=== PATIENT | female | born 1965 | race African-American/Black ===

== ENCOUNTER → 2023-11-18 15:54 | Outpatient (REF) | payer BC, SELFPAY | LOC: RCS 15:54 | PROVIDERS: ATTENDING PHYSICIAN Internal Medicine Cardiovascular Disease; FAMILY PHYSICIAN Family Medicine; REFERRING PHYSICIAN Internal Medicine Gastroenterology | DX: I10 Essential (primary) hypertension (principal); I51.7 Cardiomegaly; R00.2 Palpitations; R01.1 Cardiac murmur, unspecified | CPT/HCPCS: 93306 ==

== ENCOUNTER 2024-04-09 22:15 | Emergency (ER) | payer BC, SELFPAY ==
[2024-04-09 22:19] VITALS: BP 144/64
--- NOTE | 2024-04-09 23:42 | ED.GENMED ---
History of Present Illness
<WENDY Ro - Last Filed: 04/10/24 01:29>
General
Chief Complaint: Allergic Reaction
Source: patient
Exam Limitations: none
Time Seen by Provider: 04/09/24 23:28
Nursing documentation reviewed up to this point in time: agreed with
History of Present Illness
History of Present Illness:
Patient is a 59 yo F who presents w/ complaint of allergic reaction. Sxs started yesterday when pt woke up w/ swollen eyes. Soon after she woke up her face, head, and upper body got very itchy. She reports an itchy rash under both her breasts. Has
been using hydrocortisone cream w/o relief. Also reports swelling and pain of L wrist and B/L shoulders. She denies recent illness, travel, med changes, or outdoor activities. Denies trying any new foods or products recently. Started going to [employer]
in pool 2 wks ago. Stung by bee last week. Hx of ulcerative colitis.
Past History
<WENDY Ro - Last Filed: 04/10/24 01:29>
Past History
ED Past Medical History: HTN and Other (hyperthyroid)
Social History
Tobacco: Non-smoker
Alcohol: Occasional
Drug: None
Living: with family
Employment: Employed
Review of Systems
<WENDY Ro - Last Filed: 04/10/24 01:29>
Review of Systems
Constitutional: Denies fever, fatigue or chills
EENT: Denies sore throat or runny nose
Respiratory: Denies cough or trouble breathing
Cardiac: Denies chest pain or palpitations
ABD/GI: Denies abdominal pain, nausea, vomiting, diarrhea or constipated
: Denies dysuria or frequency
Musculoskeletal: Reports joint pain and joint swelling; Denies muscle pain or muscle stiffness
Skin: Reports itching and rash
Neurological: Denies dizzy, headache or numbness
Phy Exam
<WENDY Ro - Last Filed: 04/10/24 01:29>
General Physical Exam
General Presentation: well appearing
General age: appears younger than age
General Skin: warm and dry
General Habitus: normal
General Mental: alert
ENT Exam
ENT Exam: pharynx normal, neck supple, normocephalic and other (Diffuse flat, brown dots on tongue. Pt states they have always been there. )
Additional ENT: Bottom lip is swollen and erythematous. LN nontender & nonswollen.
Eye Exam
Eye Exam: PERRL and other (mild swelling BL eyelids )
Cardiovascular Exam
Cardiovascular Exam: regular rate/rhythm, no edema, no gallop and no murmur
Pulmonary Exam
Pulmonary Exam: lungs clear, no respiratory distress, no rales, no crackles, no rhonchi and no wheezing
Gastrointestinal Exam
Gastrointestinal Exam: normal bowel sounds, non tender, soft, no organomegaly and non distended
Neurological Exam
Neurological Exam: alert, oriented x3 and speech normal
Musculoskeletal Exam
Musculoskeletal Exam: full ROM, joint swelling (mild swelling of radial aspect of wrist. Painful to palpation. ) and other (BL shoulder acromion point tenderness. )
Skin Exam
Skin Exam: other (diffuse erythematous wheals under BL breasts. )
Course
<Deysi Ward BLAKE - Last Filed: 04/10/24 01:29>
Orders/Labs/Results
Orders:
Orders
04/10/24 00:04
Dexamethasone Pf [Decadron] 10 mg PO NOW STA
Diphenhydramine [Benadryl] 25 mg PO NOW STA
Vital Signs
Initial and Last Documented VS:
Initial Vital Signs
Temp Pulse Resp BP Pulse Ox
97.8 F 58 16 144/64 99
04/09/24 22:19 04/09/24 22:19 04/09/24 22:19 04/09/24 22:19 04/09/24 22:19
Last Documented Vital Signs
Temp Pulse Resp BP Pulse Ox
97.8 F 54 16 126/71 99
04/09/24 22:19 04/10/24 00:34 04/10/24 00:34 04/10/24 00:34 04/10/24 00:34
<George Ferreira DO - Last Filed: 04/10/24 00:51>
Orders/Labs/Results
Orders:
Orders
04/10/24 00:04
Dexamethasone Pf [Decadron] 10 mg PO NOW STA
Diphenhydramine [Benadryl] 25 mg PO NOW STA
Vital Signs
Initial and Last Documented VS:
Initial Vital Signs
Temp Pulse Resp BP Pulse Ox
97.8 F 58 16 144/64 99
04/09/24 22:19 04/09/24 22:19 04/09/24 22:19 04/09/24 22:19 04/09/24 22:19
Last Documented Vital Signs
Temp Pulse Resp BP Pulse Ox
97.8 F 54 16 126/71 99
04/09/24 22:19 04/10/24 00:34 04/10/24 00:34 04/10/24 00:34 04/10/24 00:34
<WENDY Ro - Last Filed: 04/10/24 01:29>
MDM/Problems Addressed
Differential Diagnosis Includes:
contact dermatitis, SLE, other autoimmune condition
<WENDY Ro - Last Filed: 04/10/24 01:29>
*Critical Care Note
Total Time (30-74mins, 75-104mins- exclusive of procedures): Not Applicable
<WENDY Ro - Last Filed: 04/10/24 01:29>
Update Note
Update Note:
04/10/24 12:40 am - Patient reports continued itchiness and swelling.
04/10/24 1:23 am - Patient is able to fall asleep. She reports feeling somewhat better. States that she was worried about reaction causing her throat to close but she is no concerned. Advised she can continue taking benedryl & using hydrocortisone
cream.
ED Attending Note
<WENDY Ro - Last Filed: 04/10/24 01:29>
-
Portions of this chart may have been created with voice recognition software.� Occasional wrong word or��sound alike� substitutions may have occurred due to the inherent limitations of voice recognition software.
<George Ferreira DO - Last Filed: 04/10/24 00:51>
ED Attending Note
Patient seen and examined by attending physician: Yes
I performed the substantive portion of visit, reviewed & personally made and approve the management plan that is documented in note by myself or ERNIE.: Yes
ED Attending Note:
Pleasant 59-year-old female presents with allergic. She states that yesterday she woke up with swollen eyes and a swollen lip. She states that she has itching beneath her breasts. She has been using hydrocortisone cream with some relief. Denies
any trouble breathing. Reports no shortness of breath. Does have a history of ulcerative colitis. Patient was seen in conjunction with the PA student. I have reviewed and agree with the history and treatment plan presented. On my independent
physical exam, patient is awake, alert, and oriented x3, no respiratory distress. No stridor. Lungs are clear to auscultation bilaterally without wheezes rales or rhonchi present. There is some urticaria on the bilateral breasts. Left lower lip
is slightly swollen. No petechia noted.
Plan is oral medications.
Discharge Plan
Departure
Patient Disposition: Home (Routine Discharge)
Date of Disposition: 04/10/24
Time of Disposition: 01:23
Patient with high blood pressure during this ER visit?: Yes
Condition: Good
Discharge Problem:
Allergic reaction
Instructions: Hives (DC), Allergic Reaction ED, BLOOD PRESSURE
Prescriptions:
New
diphenhydramine HCl [Benadryl] 25 mg capsule
25 mg PO TID PRN (Reason: allergy symptoms) Qty: 14 0RF
prednisone 50 mg Tablet
50 mg PO DAILY Qty: 5 0RF
epinephrine [EpiPen] 0.3 mg/0.3 mL Auto-Injector
0.3 mg IM .STAT PRN (Reason: anaphylaxis) Qty: 1 0RF
No Action
nifedipine [Nifedical XL] 30 mg Tablet Extended Release 24hr
30 mg PO DAILY
spironolactone 25 mg Tablet
25 mg PO DAILY
losartan 100 mg Tablet
100 mg PO DAILY
Entyvio 300 mg Recon Soln
300 mg IV Q8W
Referrals:
Lorna Zuniga MD [Family Provider] -
Activity Restrictions/Additional Instructions:
Your prescriptions were sent electronically to the pharmacy you requested.
It was a pleasure meeting you and taking part in your care. We hope for your continued healing and wellness.
Please read discharge instructions in their entirety. However, they are for general education and may not describe your exact diagnosis at discharge. Information on your ER visit and medical conditions were discussed with you along with appropriate
follow up information...
If indicated, please take your medications as instructed and indicated on discharge paperwork.
Please schedule a follow up appointment as directed. Call to schedule an appointment
Please return to the emergency department with ANY change in, persisting, or worsening of symptoms. If any of your symptoms do not improve, or persist, or become more severe within 6-12 hours, please return to the emergency department for further
care.
Please return to the emergency department if you develop a headache, neck pain/stiffness, fever greater than 100.4F, chest pain, shortness of breath, persistent nausea, vomiting, slurred speech, difficulty walking, numbness/tingling, weakness, signs
of infection or any other symptoms that are worrisome to you.
If you have any questions or concerns please do not hesitate to call the Hospital at or E-mail me directly at [email or web address]
Interventions
Interventions:
*Risk Screen - Suicide Last Done: 04/09/24 22:19
*General Assessment Last Done: 04/09/24 22:19
*Neglect/Abuse Screening Last Done: 04/09/24 22:19
*ED COVID-19 Vaccine History Last Done: 04/10/24 00:34
ED- Pulmonary Assessment Last Done: 04/10/24 00:34
ED-Skin Assessment Last Done: 04/10/24 00:34
Discharge Date and Time
Print Language: ESTONIAN
[2024-04-10] MEDS: DECADRON 10 MG PO (00:11)
[2024-04-10] MEDS: BENADRYL 25 MG PO (00:11)
[2024-04-10 00:34] VITALS: BP 126/71
== END 2024-04-10 01:41 | disposition home or self-care (01) ==
LOC: EMR 22:15
PROVIDERS: EMERGENCY PHYSICIAN Student in an Organized Health Care Education/Training Program; FAMILY PHYSICIAN Family Medicine
DX: T78.40XA Allergy, unspecified, initial encounter (principal); Y92.9 Unspecified place or not applicable; I10 Essential (primary) hypertension; K51.90 Ulcerative colitis, unspecified, without complications
CPT/HCPCS: 99282

== ENCOUNTER → 2024-06-23 15:47 | Outpatient (REF) | payer BC, SELFPAY | LOC: RAD 15:47 | PROVIDERS: ATTENDING PHYSICIAN Internal Medicine Cardiovascular Disease; FAMILY PHYSICIAN Family Medicine | DX: I77.810 Thoracic aortic ectasia (principal) | CPT/HCPCS: 71275; Q9967 ==

== ENCOUNTER 2024-09-09 11:09 | Emergency (ER) | payer BC, SELFPAY ==
[2024-09-09 11:16] VITALS: BP 129/68
--- NOTE | 2024-09-09 12:18 | ED.GENMED ---
History of Present Illness
General
Chief Complaint: Head Injury
Source: patient
Time Seen by Provider: 09/09/24 12:02
History of Present Illness
History of Present Illness:
59-year-old female with past medical history of hypothyroidism, hypertension, previous anemia presenting to the emergency department for evaluation after she was at swim lessons doing a butterfly stroke in the shallow end of the pool, went down and
excellently struck her forehead onto the bottom of the pool sustaining small abrasion/contusion. Patient states she felt a little woozy following the event but denies any loss consciousness, headache, vomiting, visual disturbances, focal weakness
or numbness or any other concerns. Denies any use of anticoagulants. She believes her tetanus vaccine date. No other injuries were sustained. She is also denying any numbness or tingling to either upper or lower extremities
Past History
Past History
ED Past Medical History: HTN, Hyperthyroidism and Other (hyperthyroid)
ED Past Surgical History:
Social History
Tobacco: Non-smoker
Alcohol: Occasional
Drug: None
Personal: Single
Living: with family
Employment: Employed
Review of Systems
Review of Systems
All Other Systems: ROS reviewed and negative except as documented in HPI and ROS
Phy Exam
Physical Exam
Physical Exam:
GENERAL: Alert , in no apparent distress
EYE: conjunctiva clear
Head: Small contusion/abrasion to the mid forehead without any active bleeding
NECK: Supple, no midline tenderness
ENT: mmm.
LUNGS: no acute respiratory distress
NEUROLOGICAL: Alert and oriented, full range of motion bilateral upper and lower extremities, ambulates with steady gait, 5 out of 5 strength upper and lower extremities bilateral. Sensation grossly intact to light touch throughout
SKIN: Warm and dry, skin intact.
MUSCULOSKELETAL: well perfused.
PSYCH: Normal and appropriate interaction.
Scores
Heart Failure Risk
Heart Failure Risk Score: Not Applicable
Heart Score for Chest Pain Patients
STEMI patient?: Not applicable
Withdrawal Assessment of Alcohol
Withdrawal Assessment Completed?: Not applicable
Course
Vital Signs
Initial and Last Documented VS:
Initial Vital Signs
Temp Pulse Resp BP Pulse Ox
98.4 F 52 16 129/68 98
09/09/24 11:16 09/09/24 11:16 09/09/24 11:16 09/09/24 11:16 09/09/24 11:16
Last Documented Vital Signs
Temp Pulse Resp BP Pulse Ox
98.4 F 52 16 129/68 98
09/09/24 11:16 09/09/24 11:16 09/09/24 11:16 09/09/24 11:16 09/09/24 11:16
MDM/Problems Addressed
Differential Diagnosis Includes:
Contusion/abrasion, concussion, calvarial fracture, intracranial bleeding, cervical spine injury
MDM/Problems Addressed:
59-year-old female presenting to the ER for evaluation after she was at [employer] performing the butterfly stroke stating she was in the shallow end and excellently struck the forehead onto the bottom of the pool. Patient with small
contusion/abrasion. Overall patient states she is feeling well at this time. She denies any use of anticoagulants, severe headache or loss consciousness. Using shared decision making we discussed the risk versus benefit of CT imaging and at this
time patient feels comfortable foregoing CT scan. I do think this is reasonable given the mechanism of injury combined with lack of symptoms and risks including no anticoagulant use. Discussed return precautions to the ER. Patient feels
comfortable being discharged home.
*Pulse Oximetry
Patient hypoxic: no
*Critical Care Note
Total Time (30-74mins, 75-104mins- exclusive of procedures): Not Applicable
ED Attending Note
-
Portions of this chart may have been created with voice recognition software.� Occasional wrong word or��sound alike� substitutions may have occurred due to the inherent limitations of voice recognition software.
Discharge Plan
Departure
Patient Disposition: Home (Routine Discharge)
Date of Disposition: 09/09/24
Time of Disposition: 12:18
Patient with high blood pressure during this ER visit?: No
Discharge Problem:
Contusion of forehead
Instructions: Head Injury in Adults (DC)
Prescriptions:
No Action
nifedipine [Nifedical XL] 30 mg Tablet Extended Release 24hr
30 mg PO DAILY
spironolactone 25 mg Tablet
25 mg PO DAILY
losartan 100 mg Tablet
100 mg PO DAILY
Entyvio 300 mg Recon Soln
300 mg IV Q8W
diphenhydramine HCl [Benadryl] 25 mg capsule
25 mg PO TID PRN (Reason: allergy symptoms) Qty: 14 0RF
prednisone 50 mg Tablet
50 mg PO DAILY Qty: 5 0RF
epinephrine [EpiPen] 0.3 mg/0.3 mL Auto-Injector
0.3 mg IM .STAT PRN (Reason: anaphylaxis) Qty: 1 0RF
Interventions
Interventions:
*Risk Screen - Suicide Last Done: 09/09/24 11:16
*Neglect/Abuse Screening Last Done: 09/09/24 11:16
Discharge Date and Time
Print Language: TELUGU
[2024-09-09 12:46] VITALS: BP 136/81; BMI 23.3
== END 2024-09-09 12:50 | disposition home or self-care (01) ==
LOC: EMR 11:09
PROVIDERS: EMERGENCY PHYSICIAN Emergency Medicine; FAMILY PHYSICIAN Family Medicine
DX: S00.83XA Contusion of other part of head, initial encounter (principal); S00.81XA Abrasion of other part of head, initial encounter; W22.09XA Striking against other stationary object, initial encounter; Y93.11 Activity, swimming; Y92.34 Swimming pool (public) as the place of occurrence of the external cause; E03.9 Hypothyroidism, unspecified; I10 Essential (primary) hypertension
CPT/HCPCS: 99282